=== PATIENT | male | born 1935 ===

== ENCOUNTER 2024-06-27 12:19 | Emergency (ER) | payer MEDICARE, SELFPAY ==
--- NOTE | 2024-06-27 12:30 | ED.GENADULT ---
HPI - General Adult General Chief complaint: Head Injury Stated complaint: Fall Injury/Facial Injury Source: patient Mode of arrival: ambulatory Limitations: no limitations History of Present Illness HPI narrative: 88-year-old male with hx CAD presented for complaint of facial bruising and swelling after fall yesterday. He is accompanied by daughter who says the dog pulled him down when it saw a squirrel and he did not let go of the leash. Patient denies any pain. Daughter also says the swelling is better today. He denies headache, vision changes, neck pain, dizziness, nausea, vomiting or confusion. Taking Plavix. Related Data Allergies Allergy/AdvReac Type Severity Reaction Status Date / Time WINTER Inhibitors Allergy Cough Verified 06/27/24 12:39 lisinopril Allergy Unknown Verified 06/27/24 12:39 atorvastatin AdvReac Other Verified 06/27/24 12:39 Review of Systems Review of Systems: CONSTITUTIONAL: Denies body aches, fever, chills, or sweats. EYES: Denies visual changes ENT: Denies rhinorrhea, epistaxis CARDIOVASCULAR: Denies chest pain, palpitations, or edema. RESPIRATORY: Denies cough or dyspnea. GASTROINTESTINAL: Denies abdominal pain, nausea, vomiting, or diarrhea. SKIN: Reports head bruising and wound MUSCULOSKELETAL: Denies back pain, joint pain, or myalgia. NEUROLOGIC: Denies headache, numbness, tingling, or weakness. PSYCH: Denies depression or anxiety. All systems reviewed & are unremarkable except as noted in HPI and below PMFSH Family History Family History Father Emphysema lung Colon cancer Other Alzheimer disease Glaucoma Macular degeneration Social History Social History Years smoked: 15 Smoking status: Former smoker Alcohol intake: never Substance use: never Spiritual care concerns: No Comments At time of signature, I have reviewed and agree with nursing past medical, surgical, social and family history unless otherwise noted. Please see nursing chart for further information. There is no relevant family history pertinent to the presenting complaint Exam Narrative: GENERAL: Well-appearing, in no acute distress. HEAD:traumatic bruising around eyes and forehead with swelling; eye swelling is nearly occlusive; right forehead with knot and abrasion. EYES: EOMI. Nontender orbits. ENT: Mucous membranes pink and moist. No rhinorrhea. TMs normal bilaterally. Throat normal. Uvula midline. NECK: Normal AROM. No vpt. CHEST: No respiratory distress. Clear to auscultation. HEART: Regular rate and rhythm. No murmur appreciated. Normal peripheral pulses. SKIN: Warm, dry NEURO: No focal deficits. Alert and oriented x3. Gait steady. PSYCH: Normal affect. Course Course Emergency Course: Patient is aware of diagnosis, understands and agrees to treatment plan. Anticipatory guidance given. Patient agrees to follow-up as directed and is aware of reasons to seek care at the emergency department. Portions of this record may have been created with voice recognition software Level of Care: Express Care Visit Vital Signs Vital signs: Vital Signs Temperature 97 F L 06/27/24 12:32 Pulse Rate 66 06/27/24 12:32 Respiratory Rate 16 06/27/24 12:32 Blood Pressure 138/63 06/27/24 12:32 Pulse Oximetry 100 06/27/24 12:32 Oxygen Delivery Room Air 06/27/24 12:32 Temperature 97 F L 06/27/24 12:32 Pulse Rate 66 06/27/24 12:32 Respiratory Rate 16 06/27/24 12:32 Blood Pressure 138/63 06/27/24 12:32 Pulse Oximetry 100 06/27/24 12:32 Oxygen Delivery Room Air 06/27/24 12:32 Transfer Transfered to: [facility] Transportation: Other ( private vehicle) Transfer rationale: Pt is agreeable to transfer. Requests transfer to [facility] via private vehicle; declined ambulance. Risks of transportation reviewed with pt including injury, worsening of condition and . v/u. Dtr will be driving pt; Report called to hospital, spoke with Rajani CALL, Dr Pandya, accepting physician. Pt is in stable condition at time of transfer. Advised to remain NPO and go directly to the hospital. Medical Decision Making MDM Narrative Medical decision making narrative: Discussed physical exam findings upon arrival, advised ER transfer. They declined EMS. Requesting [facility]. Differential Diagnosis Differential Diagnosis: concussion, encephalitis, SAH, subdural hematoma, subarachnoid hemorrhage, contusion, hemorrhagic stroke, Wernickes encephalopathy Vital Signs Vital Signs: Vital Signs Temperature 97 F L 06/27/24 12:32 Pulse Rate 66 12/27/24 12:32 Respiratory Rate 16 06/27/24 12:32 Blood Pressure 138/63 06/27/24 12:32 Pulse Oximetry 100 06/27/24 12:32 Oxygen Delivery Room Air 06/27/24 12:32 Temperature 97 F L 06/27/24 12:32 Pulse Rate 66 06/27/24 12:32 Respiratory Rate 16 06/27/24 12:32 Blood Pressure 138/63 06/27/24 12:32 Pulse Oximetry 100 06/27/24 12:32 Oxygen Delivery Room Air 06/27/24 12:32 reviewed Discharge Plan Discharge Clinical Impression: Acute head trauma Qualifiers: Encounter type: initial encounter Qualified Code(s): S09.90XA - Unspecified injury of head, initial encounter Patient Disposition: Acute Care Hospital Condition: Stable Patient Language: Turkmen Prescriptions: No Action carvedilol [Coreg] 12.5 mg Tablet 12.5 mg PO BIDWM Qty: 60 0RF polyethylene glycol 3350 [Miralax] 17 gram Powder In Packet 17 g PO QAM Qty: 100 0RF atorvastatin 10 mg Tablet 10 mg PO DAILY Qty: 30 0RF gabapentin 400 mg Capsule 400 mg PO BID Qty: 60 0RF clopidogrel 75 mg Tablet 75 mg PO QAM Qty: 30 0RF amlodipine [Norvasc] 5 mg Tablet 5 mg PO DAILY Qty: 30 0RF docusate sodium 100 mg Capsule 100 mg PO Q12HR Qty: 60 0RF aspirin [Children's Aspirin] 81 mg Tablet,Chewable 81 mg PO DAILY@0800 Qty: 30 0RF finasteride [Proscar] 5 mg Tablet 5 mg PO QAM Qty: 30 0RF ezetimibe [Zetia] 10 mg Tablet 10 mg PO DAILY Qty: 30 0RF cholecalciferol (vitamin D3) [Vitamin D3] 25 mcg (1,000 unit) Tablet 2,000 units PO DAILY Qty: 30 0RF Thera M Plus (ferrous fumarat) 9 mg iron-400 mcg Tablet 1 tablet PO QAM Qty: 30 0RF omega 9-hvj-[id number]-fish oil 300-1,000 mg Capsule 2,000 mg PO DAILY Qty: 30 0RF Eliquis 2.5 mg Tablet 2.5 mg PO Q12HR Qty: 60 0RF Follow-up/Referrals: Juventino,Mario Zimmer MD [Primary Care Provider] - Time of Disposition: 12:31
[2024-06-27 12:32] VITALS: BP 138/63; PULSE 66; RESP 16; TEMP 36.1; O2SAT 100
== END 2024-06-27 12:48 | disposition short-term general hospital (02) ==
PROVIDERS: Emergency Provider Nurse Practitioner Family; PCP Internal Medicine
DX: S09.90XA Unspecified injury of head, initial encounter (principal); I25.10 Atherosclerotic heart disease of native coronary artery without angina pectoris; Z87.891 Personal history of nicotine dependence; W18.39XA Other fall on same level, initial encounter
CPT/HCPCS: 99213; G0463